=== PATIENT | male | born 1985 | race Caucasian/White ===

== ENCOUNTER 2020-03-14 21:31 | Emergency (ER) | payer OTHER ==
[~2020-03-14] VITALS: Ht 170.2 cm; Wt 83.9 kg
--- NOTE | 2020-03-15 14:50 | EKG ---
[facility] [address] [facility] [place], [place] [address] Signed Normal sinus rhythm Normal ECG No previous ECGs available Confirmed by SADIQ WATTS DO ([id number]) on 03/15/2020 2:50:18 PM Electronically Signed By: SADIQ WATTS DO 03/15/20 1450 PATIENT NAME: TONY LOZA Electrocardiogram DATE OF : 81 PHYSICIAN: SADIQ WATTS DO REPORT #: [id number] REPORT IS CONFIDENTIAL AND NOT TO BE RELEASED WITHOUT AUTHORIZATION
== END 2020-03-14 23:45 | disposition home or self-care (01) ==
LOC: ED 21:31
DX: R07.89 Other chest pain (principal); F17.200 Nicotine dependence, unspecified, uncomplicated
CPT/HCPCS: 71045; 93005; 93010; 99285-25